=== PATIENT | male | born 1965 | race African-American/Black ===

== ENCOUNTER 2018-10-24 07:25 | Day surgery (SDC) | payer OTHER ==
[2018-10-24] VITALS (10 sets, daily range): BP systolic 134–164; BP diastolic 71–90
[~2018-10-24] VITALS: Ht 190.5 cm; Wt 122.9 kg
[2018-10-24] MEDS ORDERED: JULUCA 50-25 M1 EACH PO (07:55)
[2018-10-24] MEDS ORDERED: ATORVASTATIN CA20 MG ORAL (07:55)
[2018-10-24] MEDS ORDERED: LR 1000ml 1,000 ML IVLG SCH (08:33)
--- NOTE | 2018-10-24 08:37 | Anethesia Preoperative Eval ---
Anesthesia Pre-op PMH/ROS General Date of Evaluation: Oct 24, 2018 Time of Evaluation: 08:44 Anesthesiologist: Chastity ASA Score: ASA 3 Mallampati Score Class I : Soft palate, uvula, fauces, pillars visible Class II: Soft palate, uvula, fauces visible Class III: Soft palate, base of uvula visible Class IV: Only hard plate visible Mallampati Classification: Class III Surgeon: Casper Diagnosis: Umbilical Hernia Surgical Procedure: Laparoscopic Ventral Hernia Repair Family History: no anesthesia problems Allergies: Coded Allergies: No Known Allergies (Unverified , 10/24/18) Medications: see eMAR Patient NPO?: Yes Past Medical History Cardiovascular: Reports: HTN, other - HL Endocrine: Reports: DM Hematology/Immune: Reports: other - HIV Other: obesity - BMI 35 Anesthesia Pre-op Phys. Exam Physician Exam Last Vital Signs Date Time Temp Pulse Resp B/P (MAP) Pulse Ox O2 Delivery O2 Flow Rate FiO2 10/24/18 07:57 Room Air 10/24/18 07:52 97.0 80 18 134/87 97 Constitutional: NAD Neurologic: CN 2-12 intact Cardiovascular: RRR Respiratory: CTA Gastrointestinal: S/NT/ND Airway Exam Mallampati Score: Class III MO: limited ROM: limited Teeth: intact Anesthesia Pre-op A/P Risk Assessment & Plan Assessment: ASA 3 Plan: GA, SED, GlideScope Go Status Change Before Surgery: No Pre-Antibiotics Dru Grams Ancef IV Given Within 1 Hr of Incision: Yes Time Given: 09:06 Mumtaz Haywood MD Oct 24, 2018 08:37
[2018-10-24] MEDS ORDERED: Sodium Chloride 10ml vial INJ ONE (08:39)
[2018-10-24] MEDS ORDERED: fentaNYL 100 mcg/2 mL IV ONE (08:39)
[2018-10-24] MEDS ORDERED: Dexamethasone 4mg/ml vial ONE (08:39)
[2018-10-24] MEDS ORDERED: NeoSporin Gu Irrig 1ml Amp IRRIG ONE (08:40)
[2018-10-24] MEDS ORDERED: Bacitracin 50000 Units Vial ONE (08:40)
[2018-10-24] MEDS ORDERED: HYDROcodone/Acetamin 5/325 tab ORAL PRN ×2 (08:45→10:30)
[2018-10-24] MEDS ORDERED: Hydromorphone 0.5mg/0.5ml inj IVP PRN (08:45)
[2018-10-24] MEDS ORDERED: HYDROcodone/Acetamin 7.5/325 tab ORAL PRN (08:45)
[2018-10-24] MEDS ORDERED: Midazolam 2mg/2ml Inj IVP PRN (08:45)
[2018-10-24] MEDS ORDERED: Labetalol 5mg/ml 20ml vial IV PRN (08:45)
[2018-10-24] MEDS ORDERED: Atropine Sulfate 0.4mg/ml inj IVP PRN (08:45)
[2018-10-24] MEDS ORDERED: DiphenhydrAMINE 50mg/ml Inj IVP PRN (08:45)
[2018-10-24] MEDS ORDERED: Ketorolac 30mg Inj IV PRN ×2 (08:45)
[2018-10-24] MEDS ORDERED: Meperidine 50mg/ml Inj(FOR RIGORS ONLY) IVP PRN (08:45)
[2018-10-24] MEDS ORDERED: oxyCODONE HCL/Acetaminophen 5/325mg ORAL PRN (08:45)
[2018-10-24] MEDS ORDERED: Metoclopramide 10mg/2ml Inj IVP PRN (08:45)
[2018-10-24] MEDS ORDERED: fentaNYL 100 mcg/2 mL IV PRN (08:45)
[2018-10-24] MEDS ORDERED: LORazepam Inj 2mg/ml 1ml IV PRN (08:45)
[2018-10-24] MEDS ORDERED: Acetaminophen (Non formulary) 100 ML IV ONE (08:45)
[2018-10-24] MEDS ORDERED: Zemuron 50mg/5ml Inj IV ONE (08:47)
--- NOTE | 2018-10-24 08:47 | Pre-Procedure Note/Attestation ---
Pre-Procedure Note/Attestation Complete Prior to Procedure Planned Procedure: not applicable Procedure Narrative: laparoscopic ventral hernia repair with mesh; possible open Indications for Procedure Pre-Operative Diagnosis: ventral hernia Attestation I attest that I discussed the nature of the procedure; its benefits; risks and complications; and alternatives (and the risks and benefits of such alternatives ), prior to the procedure, with the patient (or the patient's legal contracts representative). I attest that, if there was a reasonable possibility of needing a blood transfusion, the patient (or the patient's legal contracts representative) was given the [facility] standardized written summary, pursuant to the Gregorio Rocklin Blood Safety Act ([place] Health and Safety Code # 1645, as amended). I attest that I re-evaluated the patient just prior to the surgery and that there has been no change in the patient's H&P, except as documented below: Figueroa Shirley Oct 24, 2018 08:47
[2018-10-24] MEDS ORDERED: Sterile Water Irrig 1000ml IRRIG ONE (09:00)
[2018-10-24] MEDS ORDERED: LR 1000ml ONE (09:00)
[2018-10-24] MEDS ORDERED: NS Irrig 1000ml ONE (09:00)
[2018-10-24] MEDS ORDERED: Glycopyrrolate 0.2mg/ml 1ml Vial ONE (09:33)
[2018-10-24] MEDS ORDERED: Neostigmine 1mg/ml 10ml Inj ONE (09:33)
--- NOTE | 2018-10-24 09:45 | Immediate Post-Op Evaluation ---
Immediate Post-Op Evalulation Immediate Post-Op Evalulation Procedure: Laparoscopic Ventral Hernia Repair Date of Evaluation: Oct 24, 2018 Time of Evaluation: 10:32 IV Fluids: 500 LR Blood Products: 0 Estimated Blood Loss: 20 Urinary Output: 0 Blood Pressure Systolic: 151 Blood Pressure Diastolic: 81 Pulse Rate: 66 Respiratory Rate: 16 O2 Sat by Pulse Oximetry: 99 Pain Score (1-10): 2 Nausea: No Vomiting: No Complications 0 Patient Status: awake, reacts, patent, extubated, none Hydration Status: adequate Dru Grams Ancef IV Given Within 1 Hr of Incision: Yes Time Given: 09:06 Mumtaz Haywood MD Oct 24, 2018 09:45
--- NOTE | 2018-10-24 09:51 | 48 Hour Post Anesthesia Eval ---
Post Anesthesia Evaluation Procedure: Laparoscopic Ventral Hernia Repair Date of Evaluation: Oct 24, 2018 Time of Evaluation: 12:42 Blood Pressure Systolic: 147 0: 81 Pulse Rate: 66 Respiratory Rate: 16 Temperature (Fahrenheit): 97 O2 Sat by Pulse Oximetry: 100 Airway: patent Nausea: No Vomiting: No Pain Intensity: 2 Hydration Status: adequate Cardiopulmonary Status: Stable Mental Status/LOC: patient returned to baseline Follow-up Care/Observations: 0 Post-Anesthesia Complications: 0 Follow-up care needed: ready to discharge Mumtaz Haywood MD Oct 24, 2018 09:50
--- NOTE | 2018-10-24 10:25 | Brief Operative Note ---
Immediate Post Operative Note Operative Note Pre-op Diagnosis: ventral hernia Procedure: laparoscopic ventral hernia repair with mesh Post-op Diagnosis: same as pre-op Surgeon: byron Anesthesiologist: tonja Anesthesia: general, local Specimen: yes Complications: none Condition: stable Fluids: see records Estimated Blood Loss: minimal Drains: none Implant(s) used?: Yes Figueroa Shirley Oct 24, 2018 10:25
[2018-10-24] MEDS ORDERED: Tylenol #3 tab (300mg/30mg) ORAL PRN (10:30)
[2018-10-24] MEDS ORDERED: HYDROmorphone 1mg/ml Carpuject SUBQ PRN (10:30)
[2018-10-24] MEDS ORDERED: D5 1/2NS 1,000 ML IV SCH (14:00)
--- NOTE | 2018-10-25 16:30 | Operative Note - Dictated ---
DATE OF OPERATION: 10/25/2018 PREOPERATIVE DIAGNOSIS: Ventral hernia. POSTOPERATIVE DIAGNOSIS: Ventral hernia. OPERATION PERFORMED: Laparoscopic ventral hernia repair with mesh. ATTENDING SURGEON: Figueroa Shirley M.D. MANGA ARTIST: None. ANESTHESIOLOGIST: Mumtaz Haywood M.D. ANESTHESIA: General ANALYST GEOCHEMICAL PROSPECTING plus local. ESTIMATED BLOOD LOSS: Minimal. IV FLUIDS: Please see and anesthesia records. COMPLICATIONS: None. DRAINS: None. SPECIMENS: Hernia sac with contents to pathology for review. COUNTS: Sponge and needle count correct x2. WOUND CLASSIFICATION: Class I. ANTIBIOTICS: The patient given 2 g Ancef IV one hour prior to cut time. IMPLANTS: Bard Ventralight dual sided mesh. INDICATIONS FOR PROCEDURE: This 53-year-old male who was referred to me by his primary care physician for evaluation of a symptomatic ventral hernia. The patient was seen in the office initially and evaluated where he was identified to have a reducible symptomatic ventral hernia, and the surgery was indicated and recommended. Risks, benefits, and alternatives discussed in detail with the patient including all risks associated with mesh placement. The patient expressed understanding and consented to surgery. OPERATIVE NOTE: The patient was taken to the operating room and placed on the operating table in supine position with bilateral arms out. All bony prominences well padded. SCDs were placed. Preoperative time-out taken to identify the patient, procedure, operative staff, and surgical staff. General anesthesia was induced and the patient was intubated. The abdomen was clipped, prepped, and draped in standard surgical fashion. A local anesthetic was infiltrated in the left upper quadrant burton's point and a 5 mm trocar site skin incision was made. Using a FiOS tip 5 mm trocar and 5 mm camera, entry was obtained through the abdomen through the subcutaneous layer, visualizing the subcutaneous layer fascia, muscle, posterior fascia and entry into the abdomen without complication under direct visualization. The abdomen was insufflated to 12 to 15 mmHg. Laparoscope was inserted and the abdomen was inspected. There were no inguinal hernias that could be identified. The small bowel looked otherwise relatively normal. In the right upper quadrant, the liver was with blunted edges. A ventral hernia was identified in the mid abdomen. At this time, a left second 5 mm trocar was placed in the left mid quadrant under direct visualization. Given the size of the hernia sac and a fatty lipoma in this hernia sac contents, decision was made to excise the sac and repair the defect primarily along with mesh placement. An infraumbilical incision was made using a fresh #11 scalpel and carried down to the ventral hernia. The ventral hernia was superior and to the right of the midline above the umbilicus. The hernia defect was palpated and the sac was identified with its contents. Sac contents were circumferentially dissected out. Following this, the 0 Vicryl interrupted sutures were placed to reapproximate the fascia. At this time, a Bard Ventralight dual sided mesh was placed before these prior placed Vicryl sutures were knotted down. The mesh was placed in appropriate positioning under laparoscopic guidance and following this the fascia was reapproximated with the prior placed 0 Vicryl sutures. The mesh was then tacked at its center using a 0 Prolene suture while reinforcing and reapproximation of the fascial defect. Following this, laparoscopic absorbable tacks were then used to tack the mesh in appropriate positioning. At the completion of the procedure, adequate and appropriate satisfactory ventral hernia repair was identified with reapproximation of the fascia, excision of the hernia sac and appropriate placement of a dual sided laparoscopic mesh. At this time, we began the conclusion of our procedure. Local anesthetic was infiltrated in all skin incisions and port sites throughout the procedure to the patient's comfort. The abdomen was desufflated and secondary trocars removed under direct visualization without complication. All skin incisions were then reapproximated using 4-0 Monocryl subcuticular interrupted sutures followed by application of skin glue and Steri-Strips. The patient tolerated the procedure well, was extubated and taken to postanesthetic care unit in stable condition. Figueroa Shirley M.D. DR: ARON JOB#: [id number] CC: SANTOS
== END 2018-10-24 12:35 | disposition home or self-care (01) ==
LOC: SUR 07:25
DX: K43.9 Ventral hernia without obstruction or gangrene (principal); I10 Essential (primary) hypertension; E11.9 Type 2 diabetes mellitus without complications; B20 Human immunodeficiency virus [HIV] disease; E66.9 Obesity, unspecified; Z68.33 Body mass index [BMI] 33.0-33.9, adult
CPT/HCPCS: 49652; 82962; C1781; J0690; J1100; J2250; J2405; J2710; J3010; 94003; 94150